=== PATIENT | female | born 1950 | race Caucasian/White ===

== ENCOUNTER 2016-11-19 09:58 | Inpatient (IN) | payer OTHER, BC ==
[~2016-11-19] VITALS: Ht 157.5 cm; Wt 79.3 kg
[~2016-11-19 09:58] MED LIST: ADVAIR 100/501 DISK IH; Biotin PO; CALCIUM CITRAT1 EAC5 PO; Coumadin,Jantoven PO; Feosol PO; LIPITOR20 MG PO; LOPRESSOR12.5 MG PO; MARTINIC1 EACH PO; NEXIUM40 MG PO; SENOKOT S,PE1 TABLET PO; Singulair PO; THERAGRAN1 TABLET PO; Vicodin,Lortab 5/500 PO; Vitamin D, Drisdol PO; ZyrTEC PO
[2016-11-19 10:29] LABS: HEMATOCRIT 44.2 % (36.0-46.0); MCH 26.3 PG (29.0-34.0); MCHC 33.3 G/DL (30.0-36.0); MCV 79.2 FL (83-99); MEAN PLAT.VOLUME 10.2 uM^3 (9.5-12.4); PLATELET COUNT 175 K/uL (156-360); RBC DIS.WIDTH-CV 14.4 % (11.8-14.6); RBC DIS.WIDTH-SD 41.5 % (39-53); RED BLOOD COUNT 5.58 M/uL (3.80-5.20); WHITE BLOOD COUNT 6.9 K/uL (4.1-10.2)
[2016-11-19 10:38] LABS: CHLORIDE 101 mEq/L (99-109); POTASSIUM 4.3 mEq/L (3.7-5.4); SODIUM 136 mEq/L (136-147)
[2016-11-19 10:40] LABS: GLUCOSE 169 mg/dL (70-99)
[2016-11-19 10:41] LABS: ANION GAP 13 MEQ/L (2-14)
[2016-11-19 10:43] LABS: GFR ESTIMATE (CALCULATED) > 59 mL/min/
[2016-11-19 10:44] LABS: UREA NITROGEN (BUN) 13 mg/dL (9-23)
[2016-11-19 12:31] LABS: INFLUENZA A VIRAL ANTIGEN POSITIVE; INFLUENZA B VIRAL ANTIGEN NEGATIVE
[2016-11-19] MEDS ORDERED: ADVAIR 500/501 DISK IH (14:56)
[2016-11-19] MEDS ORDERED: VITAMIN D31000 UNI2 PO (14:57)
[2016-11-19] MEDS ORDERED: ZYRTEC-D1 TABLE1 PO (14:58)
[2016-11-19] MEDS ORDERED: GLIMEPIRIDE1 MG PO (14:59)
[2016-11-19] MEDS ORDERED: VENTOLIN HFA18 GM IH (14:59)
[2016-11-19] MEDS ORDERED: MOMETASONE FURO17 GM BOTH NARES (14:59)
[2016-11-19 16:12] VITALS: BP 154/69
[2016-11-19 19:58] VITALS: BP 133/83
[2016-11-19 23:16] VITALS: BP 126/55
[2016-11-20 03:32] VITALS: BP 123/57
[2016-11-20 06:57] LABS: HEMATOCRIT 37.3 % (36.0-46.0); MCH 27.3 PG (29.0-34.0); MCV 82.9 FL (83-99); MEAN PLAT.VOLUME 10.2 uM^3 (9.5-12.4); PLATELET COUNT 144 K/uL (156-360); RBC DIS.WIDTH-CV 14.8 % (11.8-14.6); RBC DIS.WIDTH-SD 44.9 % (39-53); WHITE BLOOD COUNT 5.8 K/uL (4.1-10.2)
[2016-11-20 07:12] LABS: ANION GAP 7 MEQ/L (2-14); CHLORIDE 106 MEQ/L (99-109); GFR ESTIMATE (CALCULATED) > 59 mL/min/; GLUCOSE 136 mg/dL (70-99); POTASSIUM 4.1 MEQ/L (3.7-5.4); SAMPLE HEMOLYSIS CHECK 0; SAMPLE ICTERIC CHECK 0; SAMPLE LIPEMIA CHECK 0; SODIUM 140 MEQ/L (136-147); UREA NITROGEN (BUN) 13 mg/dL (9-23)
[2016-11-20 08:16] VITALS: BP 114/65
[2016-11-20 11:45] VITALS: BP 130/69
[2016-11-20 15:48] VITALS: BP 131/74
[2016-11-20 19:45] VITALS: BP 138/65
[2016-11-21 00:10] VITALS: BP 141/74
[2016-11-21 03:35] VITALS: BP 144/65
[2016-11-21 07:19] LABS: EOSINOPHIL (%) 0.7 % (0-5); HEMATOCRIT 34.5 % (36.0-46.0); IMMATURE GRANULOCYTE (%) 0.4 % (0.0-0.7); LYMPHOCYTE COUNT 1.7 K/uL (1.0-2.8); MCH 26.2 PG (29.0-34.0); MCHC 31.3 G/DL (30.0-36.0); MCV 83.5 FL (83-99); MEAN PLAT.VOLUME 10.6 uM^3 (9.5-12.4); MONOCYTE (%) 5.5 % (3-12); MONOCYTE COUNT 0.3 K/uL (0-0.8); NEUTROPHIL (%) 61.4 % (45-76); NEUTROPHIL COUNT 3.3 K/uL (1.8-6.4); PLATELET COUNT 138 K/uL (156-360); RBC DIS.WIDTH-CV 15.1 % (11.8-14.6); RBC DIS.WIDTH-SD 45.8 % (39-53); RED BLOOD COUNT 4.13 M/uL (3.80-5.20); WHITE BLOOD COUNT 5.4 K/uL (4.1-10.2)
[2016-11-21 08:00] VITALS: BP 145/102
[2016-11-21 08:08] LABS: ANION GAP 7 MEQ/L (2-14); CHLORIDE 110 MEQ/L (99-109); GFR ESTIMATE (CALCULATED) > 59 mL/min/; POTASSIUM 3.7 MEQ/L (3.7-5.4); SAMPLE HEMOLYSIS CHECK 0; SAMPLE ICTERIC CHECK 0; SAMPLE LIPEMIA CHECK 0; SODIUM 142 MEQ/L (136-147); UREA NITROGEN (BUN) 13 mg/dL (9-23)
[2016-11-21 08:09] LABS: GLUCOSE 99 mg/dL (70-99)
[2016-11-21] MEDS ORDERED: TAMIFLU75 MG PO (13:29)
[2016-11-21] MEDS ORDERED: PREDNISONE20 MG PO (13:30)
[2016-11-21] MEDS ORDERED: VENTOLIN HFA18 GM IH (14:39)
== END 2016-11-21 14:45 | disposition home or self-care (01) | DRG 193 ==
LOC: EME 09:58 → 2EAST 14:37 → EDOF 14:37 → 2EAST 16:10
PROVIDERS: Emergency Medicine; Internal Medicine
DX: J10.1 Influenza due to other identified influenza virus with other respiratory manifestations (principal); J96.01 Acute respiratory failure with hypoxia; E11.9 Type 2 diabetes mellitus without complications; J44.0 Chronic obstructive pulmonary disease with (acute) lower respiratory infection; J20.9 Acute bronchitis, unspecified; J44.1 Chronic obstructive pulmonary disease with (acute) exacerbation; J45.41 Moderate persistent asthma with (acute) exacerbation; E78.5 Hyperlipidemia, unspecified
CPT/HCPCS: 71020; 71275; 80048; 82948; 85025; 85027; 87502; 94640; 94640 76; 94644; 94760; 94799; 99202; 99281; 99285; J1644; J1815; J7030; J7512

== ENCOUNTER 2017-08-15 00:03 | Emergency (ER) | payer OTHER, BC ==
[~2017-08-15] VITALS: Ht 157.5 cm; Wt 74.3 kg
[~2017-08-15 00:03] MED LIST changes: +ADVAIR 500/501 DISK IH; +GLIMEPIRIDE1 MG PO; +MOMETASONE FURO17 GM BOTH NARES; +PREDNISONE20 MG PO; +TAMIFLU75 MG PO; +VENTOLIN HFA18 GM IH; +VITAMIN D31000 UNI2 PO; +ZYRTEC-D1 TABLE1 PO
[2017-08-15 00:49] LABS: MCH 27.1 PG (29.0-34.0); MCHC 32.7 G/DL (30.0-36.0); PLATELET COUNT 196 K/uL (156-360); RBC DIS.WIDTH-CV 14.7 % (11.8-14.6); RBC DIS.WIDTH-SD 44.1 % (39-53); RED BLOOD COUNT 4.94 M/uL (3.80-5.20); WHITE BLOOD COUNT 7.1 K/uL (4.1-10.2)
[2017-08-15 01:03] LABS: CHLORIDE 106 mEq/L (99-109); POTASSIUM 3.6 mEq/L (3.7-5.4); SODIUM 140 mEq/L (136-147)
[2017-08-15 01:04] LABS: GLUCOSE 85 mg/dL (70-99)
[2017-08-15 01:06] LABS: ANION GAP 11 MEQ/L (2-14)
[2017-08-15 01:08] LABS: GFR ESTIMATE (CALCULATED) > 59 mL/min/
[2017-08-15 01:09] LABS: UREA NITROGEN (BUN) 12 mg/dL (9-23)
[2017-08-15 01:49] LABS: TROP-I INTERPRETATION NEGATIVE; TROPONIN-I < 0.01 ng/mL (0.0-0.30)
[2017-08-15 04:18] LABS: CREATINE KINASE 28 IU/L (1-294); TOTAL CK 28 IU/L (1-294)
[2017-08-15 04:45] LABS: TROP-I INTERPRETATION NEGATIVE; TROPONIN-I 0.02 ng/mL (0.0-0.30)
[2017-08-15 05:52] VITALS: BP 144/91
== END 2017-08-15 05:53 | disposition home or self-care (01) ==
LOC: EME 00:03
PROVIDERS: Emergency Medicine
DX: R00.2 Palpitations (principal); M25.512 Pain in left shoulder; M54.6 Pain in thoracic spine; M79.602 Pain in left arm; R20.2 Paresthesia of skin; J44.9 Chronic obstructive pulmonary disease, unspecified; E11.9 Type 2 diabetes mellitus without complications; Z79.84 Long term (current) use of oral hypoglycemic drugs
CPT/HCPCS: 71020; 80048; 82550 91; 82553; 84484; 85027; 93005; 99281; 99284

== ENCOUNTER 2017-09-21 19:47 | Emergency (ER) | payer OTHER, BC ==
[~2017-09-21] VITALS: Ht 157.5 cm; Wt 68.5 kg
[2017-09-21 20:14] LABS: HEMATOCRIT 41.9 % (36.0-46.0); MCH 27.5 PG (29.0-34.0); MCHC 32.7 G/DL (30.0-36.0); MEAN PLAT.VOLUME 10.4 uM^3 (9.5-12.4); PLATELET COUNT 181 K/uL (156-360); RBC DIS.WIDTH-CV 15.4 % (11.8-14.6); RBC DIS.WIDTH-SD 46.4 % (39-53); RED BLOOD COUNT 4.99 M/uL (3.80-5.20); WHITE BLOOD COUNT 5.6 K/uL (4.1-10.2)
[2017-09-21 20:23] LABS: CHLORIDE 105 mEq/L (99-109); POTASSIUM 2.9 mEq/L (3.7-5.4); SODIUM 142 mEq/L (136-147)
[2017-09-21 20:25] LABS: GLUCOSE 197 mg/dL (70-99)
[2017-09-21 20:26] LABS: ANION GAP 10 MEQ/L (2-14)
[2017-09-21 20:28] LABS: ALKALINE PHOSPHATASE 61 IU/L (3-129); GFR ESTIMATE (CALCULATED) > 59 mL/min/
[2017-09-21 20:30] LABS: UREA NITROGEN (BUN) 7 mg/dL (9-23)
[2017-09-21 22:59] LABS: ADD MIUA? YES; BILIRUBIN NEGATIVE; BLOOD SMALL; COLOR YELLOW ((YELLOW)); GLUCOSE (STRIP) NEGATIVE; KETONES 20; LEUKOCYTES LARGE; NITRITE NEGATIVE; PROTEIN (STRIP) 30; SPECIFIC GRAVITY 1.018 (1.000-1.030)
[2017-09-21 23:15] LABS: EPITHELIAL CELLS 1+ /HPF; WHITE BLOOD CELLS TNTC /HPF (0-5)
[2017-09-21 23:16] LABS: CALCIUM OXALATE CRYSTALS 3+ /HPF; CRYSTALS PRESENT
[2017-09-21 23:17] LABS: BACTERIA 1+ /HPF; UCUL ADDED? YES
[2017-09-21 23:18] LABS: MUCUS RARE /LPF
[2017-09-21] MEDS ORDERED: KEFLEX500 MG PO (23:29)
[2017-09-21 23:55] VITALS: BP 143/76
== END 2017-09-22 | disposition home or self-care (01) ==
LOC: EME 19:47 → EXP 19:47
DX: N39.0 Urinary tract infection, site not specified (principal); I10 Essential (primary) hypertension; J44.9 Chronic obstructive pulmonary disease, unspecified; K21.9 Gastro-esophageal reflux disease without esophagitis; F41.9 Anxiety disorder, unspecified; Z88.8 Allergy status to other drugs, medicaments and biological substances
CPT/HCPCS: 80053; 81003; 85027; 87077; 87086; 87186; 99281; 99284

== ENCOUNTER 2017-09-24 13:05 | Emergency (ER) | payer OTHER, BC ==
[~2017-09-24] VITALS: Ht 157.5 cm; Wt 69.0 kg
[~2017-09-24 13:05] MED LIST changes: +ADVAIR 250/501 DISK IH; -ADVAIR 500/501 DISK IH; +KEFLEX500 MG PO
[2017-09-24 14:57] LABS: HEMATOCRIT 42.7 % (36.0-46.0); MCH 27.6 PG (29.0-34.0); MCHC 32.8 G/DL (30.0-36.0); MCV 84.2 FL (83-99); MEAN PLAT.VOLUME 10.1 uM^3 (9.5-12.4); PLATELET COUNT 185 K/uL (156-360); RBC DIS.WIDTH-CV 15.4 % (11.8-14.6); RBC DIS.WIDTH-SD 46.5 % (39-53); RED BLOOD COUNT 5.07 M/uL (3.80-5.20); WHITE BLOOD COUNT 5.2 K/uL (4.1-10.2)
[2017-09-24 15:10] LABS: CHLORIDE 105 mEq/L (99-109); POTASSIUM 3.3 mEq/L (3.7-5.4); SODIUM 143 mEq/L (136-147)
[2017-09-24 15:11] LABS: GLUCOSE 139 mg/dL (70-99)
[2017-09-24 15:13] LABS: ANION GAP 10 MEQ/L (2-14)
[2017-09-24 15:15] LABS: GFR ESTIMATE (CALCULATED) > 59 mL/min/; SERUM ETHYL ALCOHOL < 10 mg/dL
[2017-09-24 15:16] LABS: UREA NITROGEN (BUN) 7 mg/dL (9-23)
[2017-09-24 15:43] LABS: ADD MIUA? YES; BILIRUBIN NEGATIVE; BLOOD NEGATIVE; COLOR YELLOW ((YELLOW)); GLUCOSE (STRIP) 50; KETONES 20; LEUKOCYTES LARGE; NITRITE NEGATIVE; PROTEIN (STRIP) 30; SPECIFIC GRAVITY 1.021 (1.000-1.030)
[2017-09-24 15:53] LABS: AMPHETAMINE NEGATIVE (500 ng/mL); BARBITURATES NEGATIVE (200 ng/mL); BENZODIAZEPINES NEGATIVE (150 ng/mL); COCAINE NEGATIVE (150 ng/mL); INTERNAL CONTROLS VALID? YES; METHADONE NEGATIVE (200 ng/mL); METHAMPHETAMINE NEGATIVE (500 ng/mL); OPIATES (MORPHINE) NEGATIVE (100 ng/mL); OXYCODONE NEGATIVE (100 ng/mL); PHENCYCLIDINE NEGATIVE (25 ng/mL); PROPOXYPHENE NEGATIVE (300 ng/mL); THC CANNABINOIDS NEGATIVE (50 ng/mL); TRICYCLIC ANTIDEPRESSANTS NEGATIVE (300 ng/mL)
[2017-09-24 15:59] LABS: BACTERIA RARE /HPF; EPITHELIAL CELLS 1+ /HPF; MUCUS 3+ /LPF; UCUL ADDED? YES; WHITE BLOOD CELLS 40-50 /HPF (0-5)
[2017-09-24] MEDS ORDERED: ATIVAN1 MG PO ×3 (16:33→16:41)
[2017-09-24 17:15] VITALS: BP 113/76
== END 2017-09-24 17:15 | disposition home or self-care (01) ==
LOC: EME 13:05
PROVIDERS: Emergency Medicine
DX: R45.1 Restlessness and agitation (principal); F33.2 Major depressive disorder, recurrent severe without psychotic features; F41.9 Anxiety disorder, unspecified; J44.9 Chronic obstructive pulmonary disease, unspecified; I10 Essential (primary) hypertension; K21.9 Gastro-esophageal reflux disease without esophagitis; Z88.8 Allergy status to other drugs, medicaments and biological substances
CPT/HCPCS: 80048; 81003; 85027; 87086; 90839; 99281; 99284; G0480

== ENCOUNTER 2017-09-27 13:51 | Inpatient (IN) | payer OTHER, BC ==
[~2017-09-27] VITALS: Ht 157.5 cm; Wt 64.3 kg
[~2017-09-27 13:51] MED LIST changes: +ATIVAN1 MG PO
[2017-09-27 14:46] LABS: EOSINOPHIL COUNT 0.1 K/uL (0-0.3); HEMATOCRIT 43.8 % (36.0-46.0); IMMATURE GRANULOCYTE (%) 0.3 % (0.0-0.7); INSTRUMENT ABS NEUTROPHIL CT 4.3 K/uL; LYMPHOCYTE COUNT 1.1 K/uL (1.0-2.8); MCH 27.1 PG (29.0-34.0); MCV 84.7 FL (83-99); MEAN PLAT.VOLUME 10.3 uM^3 (9.5-12.4); MONOCYTE (%) 6.2 % (3-12); MONOCYTE COUNT 0.4 K/uL (0-0.8); NEUTROPHIL (%) 72.3 % (45-76); NEUTROPHIL COUNT 4.3 K/uL (1.8-6.4); PLATELET COUNT 181 K/uL (156-360); RBC DIS.WIDTH-CV 15.4 % (11.8-14.6); RBC DIS.WIDTH-SD 47.6 % (39-53); RED BLOOD COUNT 5.17 M/uL (3.80-5.20)
[2017-09-27 14:47] LABS: ADD MIUA? YES; BILIRUBIN NEGATIVE; BLOOD NEGATIVE; COLOR AMBER ((YELLOW)); GLUCOSE (STRIP) 50; KETONES 80; LEUKOCYTES LARGE; NITRITE NEGATIVE; PROTEIN (STRIP) 100; SPECIFIC GRAVITY 1.025 (1.000-1.030)
[2017-09-27 14:53] LABS: CHLORIDE 104 mEq/L (99-109); POTASSIUM 3.3 mEq/L (3.7-5.4); SODIUM 141 mEq/L (136-147)
[2017-09-27 14:55] LABS: GLUCOSE 157 mg/dL (70-99)
[2017-09-27 14:56] LABS: ANION GAP 12 MEQ/L (2-14)
[2017-09-27 14:57] LABS: TOTAL BILIRUBIN 1.1 mg/dL (0.0-1.0)
[2017-09-27 14:58] LABS: SERUM ETHYL ALCOHOL < 10 mg/dL
[2017-09-27 14:59] LABS: GFR ESTIMATE (CALCULATED) > 59 mL/min/
[2017-09-27 15:00] LABS: ALKALINE PHOSPHATASE 60 IU/L (3-129)
[2017-09-27 15:01] LABS: UREA NITROGEN (BUN) 8 mg/dL (9-23)
[2017-09-27 15:02] LABS: SALICYLATE < 5.0 MG/DL (15-30)
[2017-09-27 15:03] LABS: AMPHETAMINE NEGATIVE (500 ng/mL); BARBITURATES NEGATIVE (200 ng/mL); BENZODIAZEPINES PRESUMPTIVE POSITIVE (150 ng/mL); COCAINE NEGATIVE (150 ng/mL); METHADONE NEGATIVE (200 ng/mL); METHAMPHETAMINE NEGATIVE (500 ng/mL); OPIATES (MORPHINE) NEGATIVE (100 ng/mL); OXYCODONE NEGATIVE (100 ng/mL); PHENCYCLIDINE NEGATIVE (25 ng/mL); PROPOXYPHENE NEGATIVE (300 ng/mL); THC CANNABINOIDS NEGATIVE (50 ng/mL); TRICYCLIC ANTIDEPRESSANTS NEGATIVE (300 ng/mL)
[2017-09-27 15:04] LABS: ADD MEDTOX COMMENT Y; INTERNAL CONTROLS VALID? YES
[2017-09-27 15:24] LABS: BACTERIA RARE /HPF; BENZODIAZEPINES QUANT VALUE 0 NG/ML; BENZODIAZEPINES, URINE SCREEN Negative (200 ng/mL); EPITHELIAL CELLS 4+ /HPF; HYALINE CASTS 20-30 /LPF; MUCUS 2+ /LPF; UCUL ADDED? YES; WHITE BLOOD CELLS 40-50 /HPF (0-5)
[2017-09-27] MEDS ORDERED: KEFLEX500 MG PO (16:49)
[2017-09-27 18:29] VITALS: BP 177/95
[2017-09-28 07:28] VITALS: BP 130/63
[2017-09-28 15:20] VITALS: BP 173/77
[2017-09-28 20:09] VITALS: BP 178/82
[2017-09-29 07:47] VITALS: BP 112/69
[2017-09-29 16:08] VITALS: BP 157/75
[2017-09-30 07:36] VITALS: BP 153/87
[2017-09-30 15:56] VITALS: BP 165/83
[2017-10-01 06:25] LABS: POINT-OF-CARE METER ID UU14188576; POINT-OF-CARE USER ID ENVTLS63
[2017-10-01 07:53] VITALS: BP 147/81
[2017-10-01 15:37] VITALS: BP 149/84
[2017-10-02 07:32] VITALS: BP 154/72
[2017-10-02 15:28] VITALS: BP 141/65
[2017-10-03 06:51] VITALS: BP 146/70
[2017-10-03 08:06] LABS: BASOPHIL COUNT 0.1 K/uL (0-0.1); EOSINOPHIL (%) 5.3 % (0-5); EOSINOPHIL COUNT 0.3 K/uL (0-0.3); HEMATOCRIT 42.6 % (36.0-46.0); IMMATURE GRANULOCYTE (%) 0.2 % (0.0-0.7); INSTRUMENT ABS NEUTROPHIL CT 3.4 K/uL; LYMPHOCYTE COUNT 1.3 K/uL (1.0-2.8); MCH 27.3 PG (29.0-34.0); MCHC 32.2 G/DL (30.0-36.0); MCV 84.9 FL (83-99); MEAN PLAT.VOLUME 10.1 uM^3 (9.5-12.4); MONOCYTE (%) 5.4 % (3-12); MONOCYTE COUNT 0.3 K/uL (0-0.8); NEUTROPHIL (%) 62.9 % (45-76); NEUTROPHIL COUNT 3.4 K/uL (1.8-6.4); PLATELET COUNT 193 K/uL (156-360); RBC DIS.WIDTH-CV 15.6 % (11.8-14.6); RBC DIS.WIDTH-SD 48.2 % (39-53); RED BLOOD COUNT 5.02 M/uL (3.80-5.20); WHITE BLOOD COUNT 5.3 K/uL (4.1-10.2)
[2017-10-03 08:42] LABS: ALKALINE PHOSPHATASE 58 IU/L (3-129); ANION GAP 12 MEQ/L (2-14); CHLORIDE 103 MEQ/L (99-109); GFR ESTIMATE (CALCULATED) > 59 mL/min/; GLUCOSE 118 mg/dL (70-99); POTASSIUM 4.1 MEQ/L (3.7-5.4); SAMPLE HEMOLYSIS CHECK 0; SAMPLE ICTERIC CHECK 0; SAMPLE LIPEMIA CHECK 0; SODIUM 141 MEQ/L (136-147); TOTAL BILIRUBIN 1.3 MG/DL (0.0-1.0); UREA NITROGEN (BUN) 11 mg/dL (9-23)
[2017-10-03 12:07] VITALS: BP 161/91
[2017-10-03 15:25] VITALS: BP 163/78
[2017-10-04 07:44] VITALS: BP 146/75
[2017-10-04 14:57] VITALS: BP 148/89
[2017-10-05 07:53] VITALS: BP 115/77
[2017-10-05 15:20] VITALS: BP 153/72
[2017-10-06 07:42] VITALS: BP 121/65
[2017-10-06 15:58] VITALS: BP 162/81
[2017-10-06 19:36] VITALS: BP 188/84
[2017-10-07 07:48] VITALS: BP 138/73
[2017-10-07 15:53] VITALS: BP 178/82
[2017-10-08 07:47] VITALS: BP 158/72
[2017-10-08 16:20] VITALS: BP 122/67
[2017-10-09 07:52] VITALS: BP 141/83
[2017-10-09 15:21] VITALS: BP 134/71
[2017-10-10 07:45] VITALS: BP 130/64
[2017-10-10 15:18] VITALS: BP 126/70
[2017-10-11 07:53] VITALS: BP 147/61
[2017-10-11 11:36] LABS: ALKALINE PHOSPHATASE 55 IU/L (3-129); DIRECT BILIRUBIN 0.1 mg/dL (0.0-0.3)
[2017-10-11 12:48] LABS: ADD MIUA? YES; BILIRUBIN NEGATIVE; BLOOD NEGATIVE; COLOR AMBER ((YELLOW)); GLUCOSE (STRIP) NEGATIVE; KETONES 20; LEUKOCYTES MODERATE; NITRITE NEGATIVE; PROTEIN (STRIP) NEGATIVE; SPECIFIC GRAVITY 1.026 (1.000-1.030)
[2017-10-11 13:10] LABS: BACTERIA NONE SEEN /HPF; EPITHELIAL CELLS RARE /HPF; MUCUS 4+ /LPF; RED BLOOD CELLS 0-5 /HPF (0-5); WHITE BLOOD CELLS 15-20 /HPF (0-5)
[2017-10-11 15:42] VITALS: BP 176/72
[2017-10-11 19:11] VITALS: BP 173/90
[2017-10-12 07:59] VITALS: BP 125/60
[2017-10-12] MEDS ORDERED: SINEQUAN25 MG PO (10:17)
[2017-10-12] MEDS ORDERED: FLUOXETINE HCL20 MG PO (10:17)
[2017-10-12] MEDS ORDERED: BUSPAR15 MG PO (10:17)
[2017-10-12] MEDS ORDERED: FAMOTIDINE20 MG PO (10:17)
[2017-10-12] MEDS ORDERED: DOCUSATE SODIU100 MG PO (10:17)
[2017-10-12] MEDS ORDERED: QUETIAPINE FUMA50 MG PO (10:17)
[2017-10-12] MEDS ORDERED: PROZAC40 MG PO (10:23)
== END 2017-10-12 11:57 | disposition home or self-care (01) | DRG 885 ==
LOC: EME 13:51 → 1WEST 16:30 → EDOF 16:30 → ENRESERV 17:45 → 1WEST 18:20
PROVIDERS: Emergency Medicine; Psychiatry & Neurology Psychiatry
DX: F33.2 Major depressive disorder, recurrent severe without psychotic features (principal); F41.1 Generalized anxiety disorder; R45.851 Suicidal ideations; Z91.19 Patient's noncompliance with other medical treatment and regimen; N39.0 Urinary tract infection, site not specified; K21.9 Gastro-esophageal reflux disease without esophagitis; G47.00 Insomnia, unspecified; I10 Essential (primary) hypertension; R13.10 Dysphagia, unspecified; J44.9 Chronic obstructive pulmonary disease, unspecified; F22 Delusional disorders; K59.00 Constipation, unspecified; Z96.659 Presence of unspecified artificial knee joint; Z98.84 Bariatric surgery status
CPT/HCPCS: 74220; 76770; 80048; 80053; 80076; 81003; 82607; 82747 90; 82948; 84443; 84999; 85025; 85027; 87086; 90837; 90839; 94640; 94640 76; 97150 GO; 97530 GO; 99202; 99281; 99284; 99285; G0480; Q0177

== ENCOUNTER 2017-12-01 18:14 | Inpatient (IN) | payer OTHER, BC ==
[~2017-12-01] VITALS: Ht 160 cm; Wt 58.3 kg
[~2017-12-01 18:14] MED LIST changes: +BUSPAR15 MG PO; +DOCUSATE SODIU100 MG PO; +FAMOTIDINE20 MG PO; +FLUOXETINE HCL20 MG PO; +PROZAC40 MG PO; +QUETIAPINE FUMA50 MG PO; +SINEQUAN25 MG PO
[2017-12-01 18:45] LABS: BASOPHIL (%) 0.2 % (0-1); EOSINOPHIL (%) 0.1 % (0-5); HEMATOCRIT 50.3 % (36.0-46.0); HEMOGLOBIN 16.4 G/DL (11.9-15.5); IMMATURE GRANULOCYTE (%) 0.5 % (0.0-0.7); LYMPHOCYTE (%) 11.8 % (15-42); LYMPHOCYTE COUNT 1.1 K/uL (1.0-2.8); MCH 27.8 PG (29.0-34.0); MCHC 32.6 G/DL (30.0-36.0); MCV 85.3 FL (83-99); MONOCYTE (%) 3.8 % (3-12); MONOCYTE COUNT 0.4 K/uL (0-0.8); NEUTROPHIL (%) 83.6 % (45-76); NEUTROPHIL COUNT 7.6 K/uL (1.8-6.4); NRBC (%) 0.5 /100 WBC (0-0); PLATELET COUNT 208 K/uL (156-360); RBC DIS.WIDTH-CV 14.7 % (11.8-14.6); RBC DIS.WIDTH-SD 45.2 % (39-53); WHITE BLOOD COUNT 9.1 K/uL (4.1-10.2)
[2017-12-01 18:53] LABS: AMYLASE 131 IU/L (1-118); CHLORIDE 106 mEq/L (99-109); INTER. NORMALIZED RATIO 1.2; POTASSIUM 3.7 mEq/L (3.7-5.4)
[2017-12-01 18:54] LABS: SODIUM 153 mEq/L (136-147)
[2017-12-01 18:55] LABS: GLUCOSE 290 mg/dL (70-99); PTT 26.1 SEC (25-37)
[2017-12-01 18:58] LABS: SERUM ETHYL ALCOHOL < 10 mg/dL
[2017-12-01 18:59] LABS: CREATININE 1.7 mg/dL (0.6-1.3); GFR ESTIMATE (CALCULATED) 32 mL/min/
[2017-12-01 19:00] LABS: UREA NITROGEN (BUN) 46 mg/dL (9-23)
[2017-12-01 19:02] LABS: LIPASE 79 U/L (1.0-51.0)
[2017-12-01 19:08] LABS: TROP-I INTERPRETATION NEGATIVE; TROPONIN-I 0.05 ng/mL (0.0-0.30)
[2017-12-01 20:13] LABS: CARBON DIOXIDE (BICARBONATE) 24.5 MEQ/L (20-31)
[2017-12-01 23:11] LABS: CHLORIDE 114 mEq/L (99-109); SODIUM 152 mEq/L (136-147)
[2017-12-01 23:13] LABS: GLUCOSE 200 mg/dL (70-99)
[2017-12-01 23:16] LABS: POTASSIUM 2.8 mEq/L (3.7-5.4)
[2017-12-01 23:17] LABS: GFR ESTIMATE (CALCULATED) 52 mL/min/
[2017-12-01 23:18] LABS: UREA NITROGEN (BUN) 44 mg/dL (9-23)
[2017-12-01 23:20] LABS: CREATININE 1.1 mg/dL (0.6-1.3)
[2017-12-02 02:27] VITALS: BP 122/59
[2017-12-02 07:20] LABS: CHLORIDE 118 MEQ/L (99-109); GFR ESTIMATE (CALCULATED) 59 mL/min/; GLUCOSE 153 mg/dL (70-99); POTASSIUM 3.1 MEQ/L (3.7-5.4); SODIUM 154 MEQ/L (136-147); UREA NITROGEN (BUN) 36 mg/dL (9-23)
[2017-12-02 07:28] VITALS: BP 135/75
[2017-12-02 09:32] LABS: HEMATOCRIT 35.7 % (36.0-46.0); MCH 27.8 PG (29.0-34.0); MCHC 32.2 G/DL (30.0-36.0); MCV 86.2 FL (83-99); RBC DIS.WIDTH-CV 14.7 % (11.8-14.6); WHITE BLOOD COUNT 7.8 K/uL (4.1-10.2)
[2017-12-02 09:33] LABS: HEMOGLOBIN 11.5 G/DL (11.9-15.5); RED BLOOD COUNT 4.14 M/uL (3.80-5.20)
[2017-12-02 09:50] LABS: PLAT.SUFFICIENCY DECREASED; PLATELET CLUMPS PRESENT - PLATELET COUNTS APPEARS DECREASED
[2017-12-02 10:03] LABS: PLATELET COUNT UNABLE TO REPORT K/uL (156-360)
[2017-12-02 11:08] VITALS: BP 137/62
[2017-12-02 11:16] LABS: MAGNESIUM 2.1 mg/dl (1.3-2.7)
[2017-12-02 11:22] LABS: PHOSPHORUS 2.2 mg/dL (2.5-4.9)
[2017-12-02 13:35] LABS: ALBUMIN 2.9 G/DL (3.2-4.8); ALKALINE PHOSPHATASE 35 IU/L (3-129); ALT (GPT) 8 IU/L (3-49); AST (GOT) 13 IU/L (2-34); CHLORIDE 119 MEQ/L (99-109); CREATININE 0.9 MG/DL (0.6-1.3); GFR ESTIMATE (CALCULATED) > 59 mL/min/; GLUCOSE 138 mg/dL (70-99); POTASSIUM 3.1 MEQ/L (3.7-5.4); PREALBUMIN 9.5 mg/dL (10-40); SODIUM 152 MEQ/L (136-147); TOTAL PROTEIN 4.6 G/DL (6.4-8.3); UREA NITROGEN (BUN) 31 mg/dL (9-23)
[2017-12-02 15:11] VITALS: BP 126/63
[2017-12-02 18:27] LABS: APPEARANCE SL.HAZY ((CLEAR)); BILIRUBIN NEGATIVE; BLOOD NEGATIVE; COLOR AMBER ((YELLOW)); GLUCOSE (STRIP) 50; KETONES 5; LEUKOCYTES NEGATIVE; NITRITE NEGATIVE; PROTEIN (STRIP) NEGATIVE; SPECIFIC GRAVITY 1.016 (1.000-1.030)
[2017-12-02 18:37] LABS: BACTERIA RARE /HPF; EPITHELIAL CELLS NONE SEEN /HPF; MUCUS 1+ /LPF; RED BLOOD CELLS 0-5 /HPF (0-5); UCUL ADDED? NO; WHITE BLOOD CELLS 0-5 /HPF (0-5)
[2017-12-02 19:18] VITALS: BP 149/65
[2017-12-03 00:16] VITALS: BP 134/60
[2017-12-03 03:34] VITALS: BP 145/67
[2017-12-03 08:54] LABS: BASOPHIL (%) 0.2 % (0-1); EOSINOPHIL (%) 2.5 % (0-5); EOSINOPHIL COUNT 0.2 K/uL (0-0.3); HEMATOCRIT 33.4 % (36.0-46.0); HEMOGLOBIN 10.9 G/DL (11.9-15.5); IMMATURE GRANULOCYTE (%) 0.6 % (0.0-0.7); LYMPHOCYTE (%) 19.2 % (15-42); LYMPHOCYTE COUNT 1.2 K/uL (1.0-2.8); MCH 27.7 PG (29.0-34.0); MCHC 32.6 G/DL (30.0-36.0); MCV 84.8 FL (83-99); MONOCYTE (%) 2.7 % (3-12); MONOCYTE COUNT 0.2 K/uL (0-0.8); NEUTROPHIL (%) 74.8 % (45-76); NEUTROPHIL COUNT 4.7 K/uL (1.8-6.4); RBC DIS.WIDTH-CV 14.8 % (11.8-14.6); RBC DIS.WIDTH-SD 45.7 % (39-53); RED BLOOD COUNT 3.94 M/uL (3.80-5.20); WHITE BLOOD COUNT 6.3 K/uL (4.1-10.2)
[2017-12-03 09:01] LABS: PLATELET COUNT 93 K/uL (156-360)
[2017-12-03 09:09] VITALS: BP 150/68
[2017-12-03 09:35] LABS: CHLORIDE 115 MEQ/L (99-109); CREATININE 0.6 MG/DL (0.6-1.3); GFR ESTIMATE (CALCULATED) > 59 mL/min/; GLUCOSE 107 mg/dL (70-99); POTASSIUM 2.8 MEQ/L (3.7-5.4); SODIUM 151 MEQ/L (136-147); UREA NITROGEN (BUN) 16 mg/dL (9-23)
[2017-12-03 09:56] LABS: HEMOGLOBIN A1c (GLYCOHEMOGLOB) 6.8 % (Below 5.7)
[2017-12-03 13:40] LABS: MAGNESIUM 1.8 mg/dl (1.3-2.7); PHOSPHORUS 1.8 mg/dL (2.5-4.9)
[2017-12-03 13:46] VITALS: BP 155/70
[2017-12-03 14:30] LABS: CHLORIDE 114 MEQ/L (99-109); CREATININE 0.5 MG/DL (0.6-1.3); GFR ESTIMATE (CALCULATED) > 59 mL/min/; GLUCOSE 135 mg/dL (70-99); SODIUM 149 MEQ/L (136-147); UREA NITROGEN (BUN) 13 mg/dL (9-23)
[2017-12-03 17:25] VITALS: BP 145/72
[2017-12-03 19:40] VITALS: BP 145/73
[2017-12-04 00:12] VITALS: BP 150/71
[2017-12-04 03:56] VITALS: BP 136/76
[2017-12-04 06:56] LABS: BASOPHIL (%) 0.2 % (0-1); EOSINOPHIL COUNT 0.1 K/uL (0-0.3); HEMATOCRIT 34.4 % (36.0-46.0); HEMOGLOBIN 11.4 G/DL (11.9-15.5); IMMATURE GRANULOCYTE (%) 0.7 % (0.0-0.7); LYMPHOCYTE (%) 21.3 % (15-42); LYMPHOCYTE COUNT 0.9 K/uL (1.0-2.8); MCH 27.8 PG (29.0-34.0); MCHC 33.1 G/DL (30.0-36.0); MCV 83.9 FL (83-99); MONOCYTE (%) 2.7 % (3-12); MONOCYTE COUNT 0.1 K/uL (0-0.8); NEUTROPHIL (%) 72.1 % (45-76); NEUTROPHIL COUNT 3.2 K/uL (1.8-6.4); PLATELET COUNT 78 K/uL (156-360); RBC DIS.WIDTH-CV 14.8 % (11.8-14.6); RBC DIS.WIDTH-SD 45.1 % (39-53); WHITE BLOOD COUNT 4.4 K/uL (4.1-10.2)
[2017-12-04 07:14] VITALS: BP 134/84
[2017-12-04 07:16] LABS: CHLORIDE 109 MEQ/L (99-109); CREATININE 0.5 MG/DL (0.6-1.3); GFR ESTIMATE (CALCULATED) > 59 mL/min/; MAGNESIUM 1.7 mg/dl (1.3-2.7); PHOSPHORUS 1.6 mg/dL (2.5-4.9); SODIUM 144 MEQ/L (136-147); UREA NITROGEN (BUN) 8 mg/dL (9-23)
[2017-12-04 07:17] LABS: GLUCOSE 214 mg/dL (70-99)
[2017-12-04 10:50] VITALS: BP 122/70
[2017-12-04 15:17] VITALS: BP 91/53
[2017-12-04 19:24] VITALS: BP 108/57
[2017-12-05 04:06] VITALS: BP 121/68
[2017-12-05 07:23] VITALS: BP 110/70
[2017-12-05 11:06] VITALS: BP 92/54
[2017-12-05 13:22] LABS: CHLORIDE 105 MEQ/L (99-109); CREATININE 0.5 MG/DL (0.6-1.3); GFR ESTIMATE (CALCULATED) > 59 mL/min/; GLUCOSE 175 mg/dL (70-99); POTASSIUM 2.7 MEQ/L (3.7-5.4); SODIUM 143 MEQ/L (136-147); UREA NITROGEN (BUN) 6 mg/dL (9-23)
[2017-12-05 20:00] VITALS: BP 104/66
[2017-12-06 03:48] VITALS: BP 115/68
[2017-12-06 08:16] VITALS: BP 118/72
[2017-12-06] MEDS ORDERED: ONDANSETRON ODT4 MG PO (13:54)
[2017-12-06] MEDS ORDERED: MORPHINE S10 MG/5 ML PO (13:54)
[2017-12-06] MEDS ORDERED: MORPHINE CON20 MG/M1 PO (14:30)
[2017-12-06] MEDS ORDERED: ATIVAN INTE2 MG/1 ML PO (14:30)
[2017-12-06] MEDS ORDERED: ATIVAN0.5 MG PO (15:41)
[2017-12-06] MEDS ORDERED: ANASPAZ0.125 MG PO (15:41)
== END 2017-12-06 16:14 | disposition hospice, home (50) | DRG 640 ==
LOC: EME 18:14 → EDOF 21:52 → 5SOUTH 21:52 → ENRESERV 21:53 → 5SOUTH 12-02 01:26 → ENPENDDIS 12-06 14:03 → 5SOUTH 12-06 16:14
PROVIDERS: Emergency Medicine; Hospitalist; Internal Medicine; Nurse Practitioner Adult Health; Physician Assistant
DX: E87.0 Hyperosmolality and hypernatremia (principal); E43 Unspecified severe protein-calorie malnutrition; F33.2 Major depressive disorder, recurrent severe without psychotic features; E86.0 Dehydration; E87.6 Hypokalemia; N17.9 Acute kidney failure, unspecified; R47.01 Aphasia; R62.7 Adult failure to thrive; E87.2 Acidosis; J43.9 Emphysema, unspecified; E11.9 Type 2 diabetes mellitus without complications; Z51.5 Encounter for palliative care; I10 Essential (primary) hypertension; W06.XXXA Fall from bed, initial encounter; K21.9 Gastro-esophageal reflux disease without esophagitis; Y92.003 Bedroom of unspecified non-institutional (private) residence as the place of occurrence of the external cause; Z79.899 Other long term (current) drug therapy; Z82.0 Family history of epilepsy and other diseases of the nervous system; Z90.49 Acquired absence of other specified parts of digestive tract
CPT/HCPCS: 70450; 70551; 71046; 72125; 80048; 80048 91; 80053; 80306 90; 81003; 82150; 82803; 82948; 83036; 83605; 83690; 83735; 84100; 84134; 84484; 85025; 85027; 85610; 85730; 86850; 86900; 86901; 87040; 99202; 99281; 99285; G0480; J2543; J3370; J3480; J7030; J7050; J7070